=== PATIENT | male | born 1960 | race Caucasian/White ===

== ENCOUNTER 2017-08-19 10:04 | Inpatient (IN) | payer OTHER ==
[2017-08-19] MEDS ORDERED: Furosemide 40 MG/4 ML VIAL SLOW IVP SCH (11:00)
[2017-08-19] MEDS ORDERED: cefTRIAXone\\ROCEPHIN 1 GM in Sodium Chloride 0.9% 100 ML IVPB SCH (11:00)
[2017-08-19] MEDS ORDERED: Albuterol Sulfate 2.5 mg/0.5 ml Neb NEB PRN (11:14)
[2017-08-19 12:35] LABS: #Eosinphils 0.2 thou/uL (0.0-0.7); #Lymphocytes 1.5 thou/uL (1.20-3.40); #Monocytes 0.9 thou/uL (0.11-0.59); #Neutrophils 6.1 thou/uL (1.40-6.50); %Basophils 0.4 % (0.0-1.0); %Eosinophils 1.8 % (0.0-10.0); %Lymphocytes 17.3 % (21.0-51.0); %Monocytes 10.7 % (0.0-10.0); Hematocrit 39.3 % (42.0-52.0); Mean Platelet Volume 7.2 fL (7.4-10.4); Red Blood Cell (RBC) Count 4.41 mill/uL (4.70-6.10); White Blood Cell (WBC) Count 8.8 thou/uL (4.8-10.8)
--- NOTE | 2017-08-19 12:47 | RAD ---
PA AND LATERAL CHEST: History: Admission x-ray. FINDINGS: The heart is enlarged. The lungs are expanded without focal areas of consolidation, pneumothorax, fr ank pulmonary edema, or pleural effusions. There is pleural thickening in the left lower lateral adry st. No pneumothoraces or pleural effusions are seen. IMPRESSION: 1. Cardiomegaly. 2. Pleural thickening in the left lower lateral chest. This corresponds to prominent pleural fat not ed on the CT scan of 05-23-16. POS: [facility]
[2017-08-19 12:54] LABS: ALT (SGPT) 13 U/L (8-55); AST (SGOT) 14 U/L (5-34); Alkaline Phosphatase 59 U/L (40-150); Anion Gap 13 mmol/L (10-20); BUN (Urea Nitrogen) 9 mg/dL (8.4-25.7); Bilirubin, Total 0.8 mg/dL (0.2-1.2); Calc. Creatinine Clearance 257 mL/min (70-130); Calcium 8.7 mg/dL (7.8-10.44); Carbon Dioxide 25 mmol/L (22-29); Chloride 106 mmol/L (98-107); Estimated GFR-MDRD Greater than 90; Globulin 2.9 g/dL (2.4-3.5); Protein, Total 6.7 g/dL (6.0-8.3)
[2017-08-19] MEDS: Acetaminophen 325 MG TAB PO PRN (18:00)
--- NOTE | 2017-08-19 18:12 | HP ---
DATE OF ADMISSION: 08/19/2017 REASON FOR ADMISSION: Shortness of breath, rule out pneumonia, fever and fluid overload. HISTORY OF PRESENT ILLNESS: This is a pleasant gentleman with a history of hypertension, sleep apne a, BPH and obesity, seen in the clinic today where he presents with a 3-day history of increasing sh ortness of breath, orthopnea, and fever up to 101. He has been having to sleep in the recliner over the last 3 days secondary to \\\\"can't get enough air.\\\\" He also has a headache. He does admit to a productive cough with colored sputum. He has gained more weight since the last time I saw him. His tells me the Lasix has not been working. He denies any chest, arm or back pain. Denies an y syncopal or near syncopal episodes. He is being admitted for further evaluation and treatment. PAST MEDICAL HISTORY: 1. As above plus cellulitis of the lower extremities. 2. History of diverticulitis. PAST SURGICAL HISTORY: Back surgery. ALLERGIES: CLONIDINE and BACTRIM. MEDICATIONS: 1. Hydralazine 25 mg every day. 2. Levothyroxine 50 mcg every day. 3. Coreg 6.25 mg b.i.d. 4. Lasix 40 mg every day. 5. Potassium 20 mEq every day. 6. Minoxidil 5 mg every day. FAMILY HISTORY: Noncontributory. SOCIAL HISTORY: She does not smoke, does not drink. He is . REVIEW OF SYSTEMS: GENERAL: No weight gain or loss. Admits to weakness, fatigue, no fever or chills. HEENT: No diplopia, amaurosis fugax, tinnitus, sore throat or hoarseness. CARDIOVASCULAR: No chest or arm pain. PULMONARY: See history of present illness. GASTROINTESTINAL: No GI bleed, constipation, diarrhea. GENITOURINARY: No dysuria, nocturia, oliguria or polyuria. ENDOCRINE: No polyphagia, polydipsia or heat or cold intolerance. MUSCULOSKELETAL: Admits to arthralgias. No lupus or myopathy. NEUROLOGIC: No history of TIA or seizure. All systems are negative. PHYSICAL EXAMINATION: GENERAL: Pleasant gentleman who appears to be in slight distress. He is tachypneic upon examinatio n. VITAL SIGNS: Blood pressure 150/88, temperature 100.6. His weight is 390. NECK: Supple. JVP cannot be assessed due to obese neck. Carotid had good upstroke with no thyrome stefani. COR: Regular rate and rhythm. No murmur, S3, S4, or thrill. CHEST: Bibasilar crackles. ABDOMEN: Soft, nontender with normoactive bowel sounds. No bruit or organomegaly. EXTREMITIES: Right lower extremity is slightly erythematous and slightly swollen and 1+ edema. He had palpable pedal pulses. SKIN: There is no evidence of ulceration lesion, or rash. NEURO: He is awake, alert, and oriented to person, place, and time. ASSESSMENT: 1. Fluid overload. 2. Rule out pneumonia. 3. Rule out deep venous thrombosis. 4. Hypertension. 5. Obesity. 6. Obstructive sleep apnea. 7. History of back surgery. PLAN: 1. The patient will be admitted, will be started on IV antibiotics. 2. Plethora of labs will be obtained. 3. We will give Lasix now for diuresis. 4. We will start antibiotics. 5. We will check a complete echocardiogram. 6. All questions answered to patient's and 's satisfaction.
[2017-08-20 05:51] LABS: #Eosinphils 0.2 thou/uL (0.0-0.7); #Lymphocytes 1.7 thou/uL (1.20-3.40); #Monocytes 0.9 thou/uL (0.11-0.59); #Neutrophils 4.6 thou/uL (1.40-6.50); %Basophils 0.5 % (0.0-1.0); %Eosinophils 2.6 % (0.0-10.0); %Lymphocytes 22.6 % (21.0-51.0); %Monocytes 12.7 % (0.0-10.0); Hematocrit 38.5 % (42.0-52.0); Mean Platelet Volume 7.6 fL (7.4-10.4); Red Blood Cell (RBC) Count 4.31 mill/uL (4.70-6.10); White Blood Cell (WBC) Count 7.4 thou/uL (4.8-10.8)
[2017-08-20 06:16] LABS: ALT (SGPT) 15 U/L (8-55); AST (SGOT) 14 U/L (5-34); Alkaline Phosphatase 61 U/L (40-150); Anion Gap 14 mmol/L (10-20); BUN (Urea Nitrogen) 11 mg/dL (8.4-25.7); Bilirubin, Total 0.7 mg/dL (0.2-1.2); Calc. Creatinine Clearance 115 mL/min (70-130); Calcium 9.1 mg/dL (7.8-10.44); Carbon Dioxide 23 mmol/L (22-29); Chloride 105 mmol/L (98-107); Estimated GFR-MDRD Greater than 90; Globulin 2.8 g/dL (2.4-3.5); Protein, Total 6.7 g/dL (6.0-8.3)
[2017-08-20] MEDS ORDERED: Spironolactone 25 MG TAB PO SCH (08:00)
[2017-08-20] MEDS ORDERED: Ramipril 5 MG CAP PO SCH (09:00)
[2017-08-20] MEDS ORDERED: Carvedilol 6.25 MG TAB PO SCH (09:00)
[2017-08-20] MEDS ORDERED: Minoxidil 10 MG TAB PO SCH (09:00)
[2017-08-20] MEDS: Acetaminophen 325 MG TAB PO PRN (13:45)
[2017-08-20] MEDS ORDERED: Furosemide 100 MG/10 ML VIAL SLOW IVP SCH (16:45)
[2017-08-20] MEDS ORDERED: Potassium Chloride 20 MEQ TAB PO SCH (16:45)
[2017-08-20] MEDS: cefTRIAXone\\ROCEPHIN 1 GM in Sodium Chloride 0.9% 100 ML IVPB SCH (17:19)
--- NOTE | 2017-08-21 00:46 | CON ---
DATE OF CONSULTATION: 08/20/2017 REASON FOR CONSULTATION: Peripheral edema, shortness of breath, morbid obesity and hypertension. HISTORY OF PRESENT ILLNESS: Mr. Ludwin Lind is 56-year-old gentleman, who was admitted to the [facility] yesterday with a productive cough and shortness of breath and edema. He has been having increasing difficulty breathing and fluid retention in the last few weeks, also h ad a fever at 101 degrees. He has been sleeping in a recliner at home. His sputum was discolored. No chest pain or pressure. Positive for shortness of breath, positive for edema. PAST MEDICAL HISTORY: 1. Cellulitis. 2. Diverticulitis. PAST SURGICAL HISTORY: Back surgery. ALLERGIES: CLONIDINE and BACTRIM. MEDICATIONS: 1. Hydralazine 25 mg a day. 2. Coreg 6.25 mg twice a day. 3. Minoxidil had been prescribed but not started. 4. Lasix 40 mg a day. 5. Potassium 20 mEq a day. FAMILY HISTORY: Noncontributory. SOCIAL HISTORY: No smoking or drinking. He is . REVIEW OF SYSTEMS: Constitutional: No significant weight gain or loss. Vision: No changes. Hear ing: No changes. Pulmonary: No cough or wheezing. Cardiac: Positive for shortness of breath, no chest pain. Gastrointestinal: No nausea, vomiting, diarrhea. Skin: No rashes. Neurologic: No unilateral weakness or numbness. Psychiatric: No unusual depression or anxiety. Hematologic: No unusual bruising. Genitourinary: No burning with urination. PHYSICAL EXAMINATION: GENERAL: A pleasant gentleman. VITAL SIGNS: A 5 feet and 11 inches tall, weight 382 pounds, BMI was 53.3. Blood pressure is 122/7 7, pulse 66 regular. EYES: Sclerae nonicteric. Mouth, mucous membranes moist. NECK: Supple, no lymphadenopathy. LUNGS: Clear, no wheezing, rales or rhonchi. CARDIOVASCULAR: Normal S1, normal S2, distant, but no murmur, rub or gallop. ABDOMEN: Obese, nontender, no hepatosplenomegaly. EXTREMITIES: Warm, dry, no clubbing or cyanosis. There is a moderate to severe edema. PERTINENT LABORATORY: Potassium is 3.6. BNP is 37.8. LABORATORY AND X-RAY FINDINGS: Chest x-ray, some cardiomegaly with clear lung wal[place]. Echocardiogr am showed the left ventricle is normal, the left atrium mildly enlarged. The ejection fraction 50% - 55%. EKG not on the chart. ASSESSMENT: 1. Hypertension. 2. Peripheral edema, probably some right heart failure or strain due to obesity hypoventilation. 3. Morbid obesity. At this time, I would not really diagnose him with congestive heart failure based on the normal ejec tion fraction and normal BNP, but he is probably retaining fluid from the obesity hypoventilation sy ndrome. I discussed the critical importance of losing weight. The patient has a productive cough a nd fever, probably some bronchitis. PLAN: 1. Continue diuretic. We will give a large dose of diuretic now, and hold blood pressure medicines tonight, let his blood pressure come up to get a good diuresis. 2. Apparently had some kind of a flushing sensation this morning; he said he has taken Altace in e past with no problem. He said it occurred after he took the spironolactone and Altace. We will s top the spironolactone for now and change to lisinopril. 3. Reduce Coreg dose until edemas improve, then consider going back up. Long-term, it is very impo rtant to lose weight. At some point, hopefully a stress testing could be done. His weight exceeds what can be done here in the hospital in terms of a nuclear medicine imaging. As he continues to lo se weight, could consider outpatient stress testing. PET scanning may be an option at some point. The patient cannot walk on treadmill and it could only be a chemical stress test.
[2017-08-21] MEDS: Furosemide 20 MG/2 ML VIAL SLOW IVP SCH ×2 (05:05→14:36)
[2017-08-21 05:56] LABS: Anion Gap 18 mmol/L (10-20); BUN (Urea Nitrogen) 14 mg/dL (8.4-25.7); Calc. Creatinine Clearance 263 mL/min (70-130); Calcium 9.3 mg/dL (7.8-10.44); Carbon Dioxide 17 mmol/L (22-29); Chloride 109 mmol/L (98-107); Estimated GFR-MDRD Greater than 90
--- NOTE | 2017-08-21 08:03 | PRG ---
DATE OF SERVICE: 08/21/2017 The patient had a good night. He diuresed excellent. He diuresed 12 pounds. He wears a CPAP at [facility]. He did have a bloody nose as his oxygen was not humidified. He is now coughing up green sput um; however, he had got antibiotic coverage for that. PHYSICAL EXAMINATION: GENERAL: He is awake and alert and oriented. His is at bedside. He feels better. VITAL SIGNS: His blood pressure is 120/70, pulse 78, respiration rate 18. He is afebrile. NECK: Supple. JVD cannot be assessed due to obese neck. Carotid had good upstroke with no thyrome stefani. COR: Regular rate and rhythm. CHEST: Symmetrical with few crackles. ABDOMEN: Soft, obese, nontender with normoactive bowel sounds. No bruit or organomegaly. EXTREMITIES: He has trace edema. He had palpable pedal pulses. SKIN: There is no evidence of ulcers lesion, or rash. NEUROLOGIC: He is awake, alert, and oriented to person, place, and time. LABORATORY DATA: His CMP is okay. His echocardiogram is normal. ASSESSMENT: 1. Fluid overload. 2. Morbid obesity. 3. Hypertension. 4. Obstructive sleep apnea. 5. Upper respiratory infection. PLAN: We will continue the IV antibiotics for now and will look at changing him to p.o. antibiotics tomorrow. We will continue other medication and definitely appreciate Dr. Ramesh's help.
[2017-08-21] MEDS ORDERED: Lisinopril 10 MG TAB PO SCH (09:00)
[2017-08-21] MEDS ORDERED: Spironolactone 25 MG TAB PO SCH (09:00)
[2017-08-21 10:19] VITALS: BMI 52.0
--- NOTE | 2017-08-21 17:19 | PRG ---
DATE OF SERVICE: 08/21/2017 SUBJECTIVE: Mr. Lind is feeling better today. He said he had put out a lot of urine last night; he said he put out about 3 liters since last night that is not recorded, unfortunately that I can te ll notes, but it is unclear, but he said he put out almost a gallon now; his weight down is 9 pounds since admission. OBJECTIVE: VITAL SIGNS: Blood pressure 141/77, pulse 80 recorded, but the EKG heart rate is 60. LUNGS: Clear. CARDIAC: Normal S1, normal S2. IMAGING: EKG yesterday was normal with sinus rhythm at a rate of 60, but that was yesterday at 04:3 1 p.m. ASSESSMENT: 1. Obesity. 2. Hypertension. 3. Volume overload. PLAN: 1. We will resume carvedilol tomorrow morning, discontinue the IV diuretics. 2. He will be ready to go home tomorrow.
[2017-08-21] MEDS: cefTRIAXone\\ROCEPHIN 1 GM in Sodium Chloride 0.9% 100 ML IVPB SCH (17:22)
[2017-08-21] MEDS ORDERED: Furosemide 40 MG/4 ML VIAL SLOW IVP SCH (18:00)
[2017-08-22] MEDS: Furosemide 20 MG/2 ML VIAL SLOW IVP SCH (05:52)
[2017-08-22 07:51] VITALS: BP 109/71; TEMP 97.8
[2017-08-22] MEDS ORDERED: Carvedilol 6.25 MG TAB PO SCH (08:00)
--- NOTE | 2017-08-22 08:30 | DIS ---
FINAL DIAGNOSES: 1. Fluid overload. 2. Upper respiratory infection. 3. Obesity. 4. Obstructive sleep apnea. 5. Hypertension. COMPLICATIONS: None. PROCEDURES: None. CONSULTANTS: Dr. Ramesh. HOSPITAL COURSE: This is a pleasant gentleman who presented to my office with upper respiratory inf ection; however, he also was very tachypneic on examination. It was felt that he had congestive hea rt failure. He was admitted where he had a normal echocardiogram. He diuresed wonderful with IV di uretics. He was seen by Dr. Ramesh who did feel like that he may have an element of right-sided hea rt failure, but his weight and everything had a big part to do with that. His medications were adju sted accordingly. He was continued on IV antibiotics. His chest x-ray showed cardiomegaly. His CM P was normal. His CBC was normal. His BNP was normal. The patient diuresed well. He felt better. His sputum cleared up. It was recommended that he lose weight and get with a accounting supervisor. The [facility] did agree to do so. His hospital course was unremarkable. He was discharged home 08/22/2017 on Coreg 6.25 mg b.i.d., furosemide 20 mg every day, lisinopril 20 mg every day as well as a Z-TIFF every day. FOLLOWUP: He will follow up in a week with Chyna or Dr. Henao. He will also follow up with Card iology in 3-4 weeks as indicated.
[2017-08-22] MEDS ORDERED: cefTRIAXone\\ROCEPHIN 1 GM in Sodium Chloride 0.9% 100 ML IVPB SCH (08:45)
[2017-08-22] MEDS ORDERED: Lisinopril 20 MG TAB PO SCH (09:00)
[2017-08-22 09:05] LABS: ALT (SGPT) 23 U/L (8-55); AST (SGOT) 19 U/L (5-34); Alkaline Phosphatase 60 U/L (40-150); Anion Gap 15 mmol/L (10-20); BUN (Urea Nitrogen) 14 mg/dL (8.4-25.7); Bilirubin, Total 0.6 mg/dL (0.2-1.2); Calc. Creatinine Clearance 250 mL/min (70-130); Calcium 9.3 mg/dL (7.8-10.44); Carbon Dioxide 21 mmol/L (22-29); Chloride 104 mmol/L (98-107); Estimated GFR-MDRD Greater than 90
--- NOTE | 2017-08-22 09:40 | PRG ---
DATE OF SERVICE: 08/22/2017 SUBJECTIVE: Mr. Lind is doing better today. He had another good diuresis last night with intrave nous Lasix. PHYSICAL EXAMINATION: VITAL SIGNS: His blood pressure this morning was actually 109/71, pulse 70. LUNGS: Clear. CARDIAC: Normal S1, S2. EXTREMITIES: There is only mild edema. LABORATORY DATA: Repeat laboratories pending. ASSESSMENT: 1. Hypertension, improved. 2. Obesity with obstructive sleep apnea. 3. Peripheral edema, probably a mixture of multiple problems including likely some venous insuffici ency, some right heart strain secondary to obesity hypoventilation and obesity itself. PLAN: 1. He is on furosemide 20 mg twice a day. 2. Lisinopril 20 mg a day. 3. Carvedilol 6.25 mg twice a day. 4. At some point, consider stress testing. He needs to try to lose some more weight to successfull y do that. We can consider a PET scan. His BMI is 52, it is unclear at the current weight whether he would actually fit in the PET scanner. At some point, we would like to stress him if possible, ferdinand vargas is not having any chest pain or pressure. For now, medical therapy is most appropriate. I had a long discussion with the patient that it is essential to lose weight. Otherwise, he will al most certainly have progressive worsening of his peripheral edema. As far as lipid lowering, his cholesterol level was 195, LDL 130, triglyceride 162, mixed hyperlipid emia. At some point, may need statin therapy. At some point also we would strongly consider gastri c sleeve, obviously be a lot of healthier if you could lose 100 pounds. Prognosis, if he does not l ose weight, it is likely he will have progressively more difficulty with keeping the fluid off. Patient has been given name of Dr. Cassia Kohler, dietitian and also recommend that he walk at [employer] 15-20 minutes every day as well as during the day, he sits at a desk most of the day.
== END 2017-08-22 12:05 | disposition home or self-care (01) | DRG 641 ==
LOC: T4-B 10:04
PROVIDERS: ADMIT Specialist; ATTEND Specialist
DX: E87.70 Fluid overload, unspecified (principal); Z68.43 Body mass index [BMI] 50.0-59.9, adult; I10 Essential (primary) hypertension; E66.9 Obesity, unspecified; N40.0 Benign prostatic hyperplasia without lower urinary tract symptoms; G47.33 Obstructive sleep apnea (adult) (pediatric); E78.2 Mixed hyperlipidemia; J06.9 Acute upper respiratory infection, unspecified
CPT/HCPCS: 36415; 71020; 80048; 80053; 83880; 85025; 85379; 87040; 87070; 87086; 87205; 93005; 93010; 93306; A4216; J0696; J1940; J7050

== ENCOUNTER 2021-01-23 11:49 | Outpatient (CLI) | payer BC ==
--- NOTE | 2021-01-23 13:01 | RAD ---
AP PELVIS AND BILATERAL HIPS 3 VIEWS: HISTORY: Bilateral hip pain. FINDINGS: Mild arthritic changes of the lower lumbar spine are seen. There are rather marked arthritic changes of both hips. Joint space narrowing and osteophytic changes present bilaterally. Ring osteophytic changes along both femoral head and neck junctions and acetabular changes are fairly symmetric. IMPRESSION: Moderate osteoarthritic changes of both hips. The changes are compatible with elements of femoral ac etabular impingement. POS: [facility]
== END 2021-01-23 11:50 | disposition home or self-care (01) ==
LOC: BICRAD 11:49
PROVIDERS: ATTEND Specialist
DX: M25.551 Pain in right hip (principal); M25.552 Pain in left hip; M16.0 Bilateral primary osteoarthritis of hip
CPT/HCPCS: 72170